=== PATIENT | female | born 1960 | race African-American/Black ===

== ENCOUNTER 2017-06-09 20:51 | Observation (INO) | payer OTHER ==
[~2017-06-09 20:51] MED LIST: ALBUAER3 INH; AMLO2.5T PO; METH5TAB4 PO; METO25TA6 PO; SYMB80AE INH
[2017-06-09 21:49] VITALS: PULSE 86
[2017-06-09 21:50] VITALS: BP 136/73; PULSE 93; RESP 18; TEMP 97; O2SAT 98
[2017-06-10] VITALS (7 sets, daily range): BP systolic 115–136; BP diastolic 66–76; PULSE 70–92; RESP 16–18; TEMP 97.2–98; O2SAT 96–100
[2017-06-10] MEDS ORDERED: NITROGLYCERIN 0.4 MG SL 25 TABS/BTL SL PRN (08:00)
[2017-06-10] MEDS ORDERED: SODIUM CHLORIDE 0.9% FLUSH 10 ML FLUSH IV FLUSH PRN (08:00)
[2017-06-10] MEDS ORDERED: ONDANSETRON HCL 4 MG/2 ML VIAL IV PUSH PRN (08:00)
[2017-06-10] MEDS ORDERED: ACETAMINOPHEN 500 MG CPLT PO PRN (08:00)
[2017-06-10] MEDS ORDERED: ASPIRIN 325 MG TAB PO SCH (09:00)
[2017-06-10] MEDS ORDERED: SODIUM CHLORIDE 0.9% FLUSH 10 ML FLUSH IV FLUSH SCH (09:00)
--- NOTE | 2017-06-10 09:32 | HHI.HP ---
HPI Primary Care Physician Non-Staff Chief Complaint Chest pain History of Present Illness 57 year old female with history of HTN and Graves disease presents to ER for further evaluation of left anterior chest pain. Onset yesterday 3 pm while working at her desk. Gradual onset of squeezing, located bra area. Severity 9/ 10. Radiation to midback. So she had symptoms of dyspnea. Denied nausea, vomiting, or diaphoresis. No known precipitating factors. No known injury or trauma. Relieving factors for aspirin provided in ER stating pain gradually went away. Pain returned early a.m. has been constant since. Endorses similar pain in the past which led to cardiac catheterization 10 months ago. Her chemist assistant is Dr. Seo, seen him 3 days ago. Endorses recent "fluid on my lungs." Prescribed potassium and water tablet 5 days. Completed medication a few days ago and since her cough has resolved. Denies any current sputum production. Review of Systems General: No fatigue,weakness, fever, chills, recent illness, or change in appetite. Has been in her general state of health. HEENT: No CHRISTIANSON, no vision changes, no nasal congestion or drainage CV: Chest pain returned as stated above. No pressure, palpitations, or dizziness. RESP: Recently prescribed and completed diuretic and KCL supplementation for increasing sputum production and "water on my lungs." History of asthma. GI: No nausea, vomiting, bowel changes. Reports chronic constipation for years. No unintentional weight gain or weight loss. : No dysuria EXT: No lower leg edema, no paraesthesias MS: No discomfort or change in ROM NEURO: No difficulty with balance, LOC, or motor/sensory deficits PSYCH: No anxiety, depression, or situational stress. SKIN: No rashes, no concerning lesions Past Family Social History Allergies: Coded Allergies: No Known Allergies (Unverified , 06/09/17) Past Medical History Graves' disease, hypertension Past Surgical History Hysterectomy Reported Medications Active Reported Proair Hfa 8.5 GM Inh (Albuterol Sulfate) 90 Mcg/Act Aer 1 Puff INH Q4H PRN 108 mcg/actuation Symbicort Inh (Budesonide/Formoterol Fumarate) 80-4.5 Mcg/Act Aero 1 Puff INH Q12HR Methimazole 5 Mg Tab 5 Mg PO DAILY Metoprolol Succinate ER 24 HR (Metoprolol Succinate) 25 Mg Tab 25 Mg PO DAILY Amlodipine (Amlodipine Besylate) 2.5 Mg Tab 2.5 Mg PO DAILY HCTZ 25mg QD Active Ordered Medications Current Medications Medications (Trade) Dose Ordered Sig/Nimco Route Start Time Stop Time Status Last Admin (NS Flush) 2 ml UNSCH PRN IV FLUSH 06/10/17 08:00 (NS Flush) 2 ml BID IV FLUSH 06/10/17 09:00 (Tylenol) 500 mg Q4H PRN PO 06/10/17 08:00 (Zofran Inj) 4 mg Q6H PRN IV PUSH 06/10/17 08:00 (Nitrostat Sl) 0.4 mg Q5M PRN SL 06/10/17 08:00 (Aspirin) 325 mg DAILY PO 06/10/17 09:00 Family History Noncontributory for early onset cardiovascular disease. Father lived until 100. Mother is alive and well, age 100. Social History Known hypertension. No known diabetes, CAD, or hyperlipidemia. Lifelong nonsmoker. Denies any alcohol or illegal drug use. Endorses an active lifestyle. Attends gym 3x/weekly. Past Cardiac Testing August 2016 Cardiac catheterization (Dr. Seo, [place])-reported to be normal without any blockages. Seen Dr. Seo 3 days ago, scheduled for Echocardiogram 07/08/17. Physical Exam Vital Signs Vital Signs Date Time Temp Pulse Resp B/P (MAP) Pulse Ox O2 Delivery O2 Flow Rate FiO2 06/10/17 09:10 97.7 84 16 136/76 (96) 100 06/10/17 07:29 70 06/10/17 07:27 71 06/10/17 03:39 92 06/10/17 03:36 97.2 78 18 115/66 (82) 96 06/10/17 00:48 73 06/09/17 21:50 97.0 93 18 136/73 (94) 98 06/09/17 21:49 86 Physical Exam GENERAL: Alert WN, WD, NAD, pleasant, female HEAD: NC, AT EYES: Sclera clear, conjunctiva without injection, pupils equal and round ENT: Mucous membranes pink and moist CV: RRR, without murmur, rub, gallop, no JVD, S1-S2 no S3-S4. No carotid bruits. RESP: Expiratory wheeze throughout, diminished lungs throughout bilateral, no crackles or rhonchi. symmetrical chest rise, nonlabored, able to speak in full sentences ABD: Soft, NT, ND, no masses, positive bowel tones EXT: Pulses +24, no dependent edema MS: Normal tone 4 extremities, nontender, no obvious deformities, full range of motion NEURO: CN II through CN XII grossly intact, motor strength 5/5 PSYCH: A+O 3, pleasant affect, appropriate speech, appropriate mood and affect , insight and judgment SKIN: Normal turgor, normal texture, no lesions, no rashes Laboratory Laboratory Tests Test 06/09/17 21:27 06/10/17 01:10 Troponin I LESS THAN 0.02 LESS THAN 0.02 Imaging Chest xray read by radiologist as no acute disease. Course EKG NSR, normal axis, nonspecific T wave changes Caprini VTE Risk Assessment Caprini VTE Risk Assessment: No/Low Risk (score <= 1) Caprini Risk Assessment Model Point Value = 1 Point Value = 2 Point Value = 3 Point Value = 5 Age 41-60 Minor surgery BMI > 25 kg/m2 Swollen legs Varicose veins or History of unexplained or recurrent spontaneous Oral contraceptives or hormone replacement Sepsis (< 1 month) Serious lung disease, including pneumonia (< 1 month) Abnormal pulmonary function Acute myocardial infarction Congestive heart failure (< 1 month) History of inflammatory bowel disease Medical patient at bed rest Age 61-74 Arthroscopic surgery Major open surgery (> 45 min) Laparoscopic surgery (> 45 min) Malignancy Confined to bed (> 72 hours) Immobilizing plaster cast Central venous access Age >= 75 History of VTE Family history of VTE Factor V Leiden Prothrombin [id number] Lupus anticoagulant Anticardiolipin antibodies Elevated serum homocysteine Heparin-induced thrombocytopenia Other congenital or acquired thrombophilia Stroke (< 1 month) Elective arthroplasty Hip, pelvis, or leg fracture Acute spinal cord injury (< 1 month) Prophylaxis Regimen Total Risk Factor Score Risk Level Prophylaxis Regimen 0-1 Low Early ambulation 2 Moderate Order ONE of the following: *Sequential Compression Device (SCD) *Heparin 5000 units SQ BID 3-4 Higher Order ONE of the following medications: *Heparin 5000 units SQ TID *Enoxaparin/Lovenox 40 mg SQ daily (WT < 150 kg, CrCl > 30 mL/min) *Enoxaparin/Lovenox 30 mg SQ daily (WT < 150 kg, CrCl > 10-29 mL/min) *Enoxaparin/Lovenox 30 mg SQ BID (WT < 150 kg, CrCl > 30 mL/min) AND/OR *Sequential Compression Device (SCD) 5 or more Highest Order ONE of the following medications: *Heparin 5000 units SQ TID (Preferred with Epidurals) *Enoxaparin/Lovenox 40 mg SQ daily (WT < 150 kg, CrCl > 30 mL/min) *Enoxaparin/Lovenox 30 mg SQ daily (WT < 150 kg, CrCl > 10-29 mL/min) *Enoxaparin/Lovenox 30 mg SQ BID (WT < 150 kg, CrCl > 30 mL/min) AND *Sequential Compression Device (SCD) Assessment and Plan Assessment and Plan #1 Chest pain-admitted to chest pain center. Ruled out with 3 sets or EKGs, cardiac enzymes, and monitored overnight on telemetry. Seen and evaluated by Dr.Donald Rush. No further cardiac testing, recent normal cardiac catheterization 10 months ago. Recommended she call her chemist assistant and request an appointment sooner than next month for scheduled echocardiogram. #2 Asthma-albuterol RT treatment Q2H and prn. Continue Symbicort. #3 Graves disease-continue methimazole, follow with PCP #4 Hypertension-continue amlodipine and metoprolol, encouraged low sodium diet Sarah Beth Johnson Jun 10, 2017 09:32
[2017-06-10] MEDS ORDERED: RESP: ALBUTEROL 2.5 MG/3 ML NEB (PRN) NEB (09:45)
[2017-06-10] MEDS ORDERED: METOPROLOL SUCCINATE 25 MG EXTENDED RELEASE TAB PO SCH (10:00)
[2017-06-10] MEDS ORDERED: HYDR25TA5 PO (10:18)
--- NOTE | 2017-06-10 10:44 | EKG ---
Date Performed: 06/10/2017 Time Performed: 01:43:07 PTAGE: 57 years EKG: Sinus rhythm NONSPECIFIC ST & T-WAVE ABNORMALITY BORDERLINE ECG NO SIG CHANGE NO PREVIOUS TRACING DOCTOR: Greg Rush Interpretating Date/Time 06/10/2017 10:43:58
--- NOTE | 2017-06-10 10:45 | EKG ---
Date Performed: 06/09/2017 Time Performed: 21:17:56 PTAGE: 57 years EKG: Sinus rhythm NONSPECIFIC T-WAVE ABNORMALITY BORDERLINE ECG NO SIG CHANGE PREVIOUS TRACING : 06/09/2017 17.46 DOCTOR: Greg Rush Interpretating Date/Time 06/10/2017 10:45:16
[2017-06-10] MEDS ORDERED: METHIMAZOLE 5 MG TAB PO SCH (11:00)
[2017-06-10] MEDS ORDERED: BUDESONIDE-FORMOTEROL 80/4.5 MCG INHALER INH SCH (11:00)
--- NOTE | 2017-06-10 12:40 | HHI.DCPOC ---
Discharge Care Plan Diagnosis: (1) Atypical chest pain (2) Hypertension Goals to Promote Your Health * To prevent worsening of your condition and complications * To maintain your health at the optimal level Directions to Meet Your Goals Take your medications as prescribed Follow your dietary instruction Follow activity as directed Keep your appointments as scheduled Take your immunizations and boosters as scheduled If your symptoms worsen call your PCP, if no PCP go to Urgent Care Center or Emergency Room Smoking is Dangerous to Your Health. Avoid second hand smoke Call the 24-hour hour crisis hotline for domestic abuse at Sarah Beth Johnson Jun 10, 2017 12:40
--- NOTE | 2017-06-10 12:41 | PD.CARD.PN ---
Subjective Subjective Remarks Patient seen and examined, chart reviewed and discussed with [employer]. She had a negative CATH "no blockage" by Dr. Seo in [place] about a year ago. He continues to follow her as she had recent cough and congestion which was treated with 5 days of a diuretic with good results. He has her scheduled for an ECHO on Jun 28. This current episode is similar to her previous and since he is already in the process of evaluating her for this we will RO and disch for FU with him this week. Objective Medications Current Medications Medications (Trade) Dose Ordered Sig/Nimco Route Start Time Stop Time Status Last Admin (NS Flush) 2 ml UNSCH PRN IV FLUSH 06/10/17 08:00 (NS Flush) 2 ml BID IV FLUSH 06/10/17 09:00 (Tylenol) 500 mg Q4H PRN PO 06/10/17 08:00 (Zofran Inj) 4 mg Q6H PRN IV PUSH 06/10/17 08:00 (Nitrostat Sl) 0.4 mg Q5M PRN SL 06/10/17 08:00 (Aspirin) 325 mg DAILY PO 06/10/17 09:00 (Albuterol Neb) 2.5 mg Q2HR NEB PRN NEB 06/10/17 09:45 (Symbicort 80-4.5 Mcg Inh) 1 puff Q12HR INH 06/10/17 11:00 (Tapazole) 5 mg DAILY PO 06/10/17 11:00 (Toprol Xl) 25 mg DAILY PO 06/10/17 10:00 Vital Signs / I&O Vital Signs Date Time Temp Pulse Resp B/P (MAP) Pulse Ox O2 Delivery O2 Flow Rate FiO2 06/10/17 12:15 98.0 79 16 132/71 (91) 99 06/10/17 09:10 97.7 84 16 136/76 (96) 100 06/10/17 07:29 70 06/10/17 07:27 71 06/10/17 03:39 92 06/10/17 03:36 97.2 78 18 115/66 (82) 96 06/10/17 00:48 73 06/09/17 21:50 97.0 93 18 136/73 (94) 98 06/09/17 21:49 86 Laboratory Laboratory Tests Test 06/09/17 21:27 06/10/17 01:10 Troponin I LESS THAN 0.02 NG/ML LESS THAN 0.02 NG/ML Greg Rush MD Jun 10, 2017 12:41
[2017-06-10] MEDS ORDERED: amLODIPine BESYLATE 5 MG TAB PO SCH (13:15)
[2017-06-10] MEDS ORDERED: HYDROCHLOROTHIAZIDE 25 MG TAB PO SCH (13:15)
[2017-06-10] MEDS ORDERED: PILL SPLITTER OTHER PRN (13:15)
== END 2017-06-10 15:33 | disposition home or self-care (01) ==
LOC: NEDDLT 20:51 → NEPFCDU 20:54
PROVIDERS: ADMIT Internal Medicine Interventional Cardiology; ATTEND Internal Medicine Interventional Cardiology
DX: R07.89 Other chest pain (principal); I10 Essential (primary) hypertension; E05.00 Thyrotoxicosis with diffuse goiter without thyrotoxic crisis or storm; J45.909 Unspecified asthma, uncomplicated; Z79.899 Other long term (current) drug therapy
CPT/HCPCS: 71010; 80053; 84484; 85025; 85610; 85730; 93005; G0378